=== PATIENT | male | born 1975 | race Caucasian/White ===

== ENCOUNTER 2019-06-04 12:42 | Emergency (ER) | payer OTHER ==
[~2019-06-04] VITALS: Ht 177.8 cm; Wt 103.0 kg
[2019-06-04 12:44] VITALS: Ht 177.8 cm; Wt 103.0 kg
[2019-06-04 15:05] VITALS: BP 166/94
== END 2019-06-04 15:05 | disposition home or self-care (01) ==
LOC: ED 12:42
DX: M79.671 Pain in right foot (principal); E11.9 Type 2 diabetes mellitus without complications